=== PATIENT | male | born 1960 | race Caucasian/White ===

== ENCOUNTER 2018-09-22 13:52 | Emergency (ER) | payer MEDICAID ==
[2018-09-22] MEDS ORDERED: Aspirin 325 MG Tab.EC PO ONE (16:22)
--- NOTE | 2018-09-22 16:29 | EDM.PDOC ---
ED HPI GENERAL MEDICAL PROBLEM - General Chief Complaint: Cardiovascular Problem Stated Complaint: MEDICAL VIA [facility] Time Seen by Provider: 09/22/18 14:01 Source of Information: Reports: Patient History Limitations: Reports: No Limitations - History of Present Illness INITIAL COMMENTS - FREE TEXT/NARRATIVE: Patient collapsed at local store. No chest pain, seizure or other acute injury. Has muscle spasm left thigh. Onset: Today Onset Time: 14:00 Location: Reports: Lower Extremity, Right (s) Quality: Reports: Sharp Severity: Moderate Improves with: Reports: None, Movement Worsens with: Reports: Movement Context: Reports: Activity Associated Symptoms: Reports: No Other Symptoms - Related Data Allergies Allergy/AdvReac Type Severity Reaction Status Date / Time No Known Allergies Allergy Verified 09/22/18 14:07 Home Meds: Home Meds Aspirin 325 mg PO DAILY 09/22/18 [History] Chlorthalidone 25 mg PO DAILY 09/22/18 [History] Lactulose [Constulose] 30 ml PO DAILY 09/22/18 [History] Lisinopril 20 mg PO BID 09/22/18 [History] Melatonin 10 mg PO BEDTIME 09/22/18 [History] Past Medical History Cardiovascular History: Reports: Hypertension Neurological History: Reports: CVA Social & Family History - Tobacco Use Smoking Status *Q: Never Smoker - Caffeine Use Caffeine Use: Reports: Soda - Recreational Drug Use Recreational Drug Use: No ED ROS GENERAL - Review of Systems Review Of Systems: See Below Constitutional: Reports: No Symptoms HEENT: Reports: No Symptoms Respiratory: Reports: No Symptoms Cardiovascular: Reports: No Symptoms Endocrine: Reports: No Symptoms GI/Abdominal: Reports: No Symptoms : Reports: No Symptoms Musculoskeletal: Reports: Muscle Pain Skin: Reports: No Symptoms Neurological: Reports: No Symptoms Psychiatric: Reports: No Symptoms Hematologic/Lymphatic: Reports: No Symptoms Immunologic: Reports: No Symptoms ED EXAM, GENERAL - Physical Exam Exam: See Below Exam Limited By: No Limitations General Appearance: Alert Ears: Normal External Exam, Normal TMs Nose: Normal Inspection Throat/Mouth: Normal Inspection Head: Atraumatic Neck: Normal Inspection Respiratory/Chest: No Respiratory Distress Cardiovascular: Normal Peripheral Pulses, Irregularly Irregular GI/Abdominal: Non-Tender (Male) Exam: Deferred Rectal (Males) Exam: Deferred Back Exam: Normal Inspection Extremities: Leg Pain (spasm and tender L medical thigh. No bony tenderness), Limited Range of Motion Course - Vital Signs Last Recorded V/S: Last Vital Signs Temp 35.7 C 09/22/18 13:54 Pulse 82 09/22/18 16:02 Resp 13 09/22/18 16:02 BP 150/76 H 09/22/18 16:02 Pulse Ox 96 09/22/18 16:02 - Orders/Labs/Meds Labs: Laboratory Tests 09/22/18 09/22/18 09/22/18 Range/Units 14:20 14:20 14:20 WBC 13.0 H (4.5-11.0) K/uL RBC 3.97 L (4.30-5.90) M/uL Hgb 13.0 (12.0-15.0) g/dL Hct 38.5 L (40.0-54.0) % MCV 97 (80-98) fL MCH 33 H (27-31) pg MCHC 34 (32-36) % Plt Count 212 (150-400) K/uL Neut % (Auto) 76 H (36-66) % Lymph % (Auto) 18 L (24-44) % [place] % (Auto) 4 (2-6) % Eos % (Auto) 2 (2-4) % Baso % (Auto) 0 (0-1) % Sodium 143 (140-148) mmol/L Potassium 3.2 L (3.6-5.2) mmol/L Chloride 104 (100-108) mmol/L Carbon Dioxide 31 (21-32) mmol/L Anion Gap 11.2 (5.0-14.0) mmol/L BUN 23 H (7-18) mg/dL Creatinine 1.4 H (0.8-1.3) mg/dL Est Cr Clr Drug Dosing 60.51 mL/min Estimated GFR (MDRD) 52 L (>60) Glucose 174 H (74-106) mg/dL Calcium 8.7 (8.5-10.1) mg/dL Total Bilirubin 0.7 (0.2-1.0) mg/dL AST 25 (15-37) U/L ALT 33 (12-78) U/L Alkaline Phosphatase 87 (46-116) U/L Troponin I < 0.017 (0.000-0.056) ng/mL Total Protein 6.7 (6.4-8.2) g/dL Albumin 3.4 (3.4-5.0) g/dL Globulin 3.3 (2.3-3.5) g/dL Albumin/Globulin Ratio 1.0 L (1.2-2.2) Meds: Medications Discontinued Medications Generic Name Dose Route Start Last Admin Trade Name Freq PRN Reason Stop Dose Admin Aspirin 325 mg 09/22/18 16:22 09/22/18 16:28 Ecotrin PO 09/22/18 16:23 325 mg ONETIME ONE Administration Departure - Departure Time of Disposition: 16:30 Disposition: Home, Self-Care 01 Condition: Good (intermittent atrial fibrillation) Clinical Impression: Atrial dysrhythmia Instructions: Atrial Fibrillation, [id number] Forms: ED Department Discharge
--- NOTE | 2018-09-22 19:05 | CRLCR ---
PELVIS AND LEFT FEMUR INDICATION: Left-sided pain after fall. COMPARISON: None. FINDINGS/IMPRESSION: Acute nondisplaced intertrochanteric fracture of the left hip. No other fracture identified in the bony pelvis or left femur. Mild bilateral hip DJD changes. Dictated by Tacho Almonte MD @ 09/22/2018 7:03:20 PM Dictated by: Tacho Almonte MD @ 09/22/2018 19:04:12 (Electronically Signed)
--- NOTE | 2018-09-22 19:07 | CRLCR ---
PELVIS AND LEFT FEMUR INDICATION: Left-sided pain after fall. COMPARISON: None. FINDINGS/IMPRESSION: Acute nondisplaced intertrochanteric fracture of the left hip. No other fracture identified in the bony pelvis or left femur. Mild bilateral hip DJD changes. Dictated by Tacho Almonte MD @ 09/22/2018 7:03:20 PM Dictated by: Tacho Almonte MD @ 09/22/2018 19:04:35 (Electronically Signed)
== END 2018-09-22 20:20 ==
LOC: JP.ED 13:52
DX: S72.142A Displaced intertrochanteric fracture of left femur, initial encounter for closed fracture (principal); I49.9 Cardiac arrhythmia, unspecified; I10 Essential (primary) hypertension; Z79.82 Long term (current) use of aspirin; Z79.899 Other long term (current) drug therapy; Z86.73 Personal history of transient ischemic attack (TIA), and cerebral infarction without residual deficits; X58.XXXA Exposure to other specified factors, initial encounter
CPT/HCPCS: 36415; 72170; 73552; 80053; 84484; 85025; 99283; A9270; 93010

== ENCOUNTER 2025-01-22 13:25 | Inpatient (IN) | payer MEDICAID, MEDICARE ==
[2025-01-22 15:26] LABS: PLATELET COUNT,PLT 244.0 K/uL (130-375); RED BLOOD CELL COUNT 4.12 M/uL (4.14-5.76); WHITE BLOOD CELL COUNT,WBC 17.6 K/uL (3.2-11.0)
[2025-01-22 15:51] LABS: BLOOD UREA NITROGEN,BUN 22.0 mg/dL (7-18); CARBON DIOXIDE,CO2 24.0 mmol/L (21-32); CHLORIDE,CL 97.0 mmol/L (100-108); CREATININE 1.0 mg/dL (0.8-1.3); EST CRCL DRUG DOSING (CG) 75.03 mL/min; ESTIMATED GFR 83.0 mL/min (>60); GLUCOSE RANDOM 141.0 mg/dL (74-106); POTASSIUM,K 3.7 mmol/L (3.6-5.2); SODIUM,NA 134.0 mmol/L (140-148); TROPONIN I HIGH SENSITIVITY 6.4 pg/mL (<=60.3)
[2025-01-22] MEDS: Ketorolac 30 MG/ML SDV IVPUSH ONE (15:58)
[2025-01-22] MEDS: Sodium Chloride 0.9% 10 ML Syringe FLUSH ONE (16:06)
[2025-01-22] MEDS: Iopamidol 612 MG/ML 100 ML Bottle IV SCH (16:06)
[2025-01-22] MEDS ORDERED: Magnesium Hydroxide 400 MG/5 ML Susp 30 ML Cup PO PRN (20:01)
[2025-01-22] MEDS ORDERED: Sennosides/Docusate Sodium 50-8.6 MG Tab PO PRN (20:01)
[2025-01-22] MEDS ORDERED: Ondansetron 4 MG/2 ML SDV IV PRN (20:01)
[2025-01-22] MEDS ORDERED: Ondansetron 4 MG Tab.DIS PO PRN (20:01)
[2025-01-22] MEDS ORDERED: Naloxone 0.4 MG/ML SDV IVPUSH PRN (20:01)
[2025-01-23 06:03] LABS: PLATELET COUNT,PLT 258.0 K/uL (130-375); RED BLOOD CELL COUNT 3.8 M/uL (4.14-5.76); WHITE BLOOD CELL COUNT,WBC 15.1 K/uL (3.2-11.0)
[2025-01-23 06:14] LABS: INR 1.1
[2025-01-23 06:20] LABS: A/G RATIO 1.0 (1.2-2.2); ALANINE AMINOTRANSFERASE,ALT 36 U/L (12-78); ASPARTATE AMNIOTRANSFERASE,AST 32 U/L (15-37); BILIRUBIN TOTAL 0.6 mg/dL (0.2-1.0); BLOOD UREA NITROGEN,BUN 28 mg/dL (7-18); CARBON DIOXIDE,CO2 24 mmol/L (21-32); CHLORIDE,CL 97 mmol/L (100-108); CREATININE 1.1 mg/dL (0.8-1.3); EST CRCL DRUG DOSING (CG) 68.21 mL/min; ESTIMATED GFR 74 mL/min (>60); GLUCOSE RANDOM 152 mg/dL (74-106); POTASSIUM,K 3.6 mmol/L (3.6-5.2); PROTEIN TOTAL,TP 6.7 g/dL (6.4-8.2); SODIUM,NA 134 mmol/L (140-148)
[2025-01-23] MEDS ORDERED: Sodium Chloride 0.9% 10 ML Syringe IV PRN (09:19)
[2025-01-23] MEDS: Iopamidol 612 MG/ML 100 ML Bottle IV SCH (11:48)
== END 2025-01-24 13:09 | disposition home or self-care (01) | DRG 184 ==
LOC: JP.ED 13:25 → JP.MS 17:50
PROVIDERS: ADMIT Internal Medicine; ATTEND Internal Medicine
DX: S22.42XA Multiple fractures of ribs, left side, initial encounter for closed fracture (principal); C78.01 Secondary malignant neoplasm of right lung; S27.0XXA Traumatic pneumothorax, initial encounter; C78.02 Secondary malignant neoplasm of left lung; R55 Syncope and collapse; H54.7 Unspecified visual loss; E78.00 Pure hypercholesterolemia, unspecified; I10 Essential (primary) hypertension; E11.9 Type 2 diabetes mellitus without complications; M19.90 Unspecified osteoarthritis, unspecified site; W01.198A Fall on same level from slipping, tripping and stumbling with subsequent striking against other object, initial encounter; Z86.73 Personal history of transient ischemic attack (TIA), and cerebral infarction without residual deficits; Z79.82 Long term (current) use of aspirin; Z79.899 Other long term (current) drug therapy; Z79.84 Long term (current) use of oral hypoglycemic drugs; Z98.890 Other specified postprocedural states
CPT/HCPCS: 36415; 70450 ×2; 71260 ×2; 72125 ×2; 76377; 80048; 84484; 85027; 93005; 96374; 99285; A9270; Q9967; 71045; 71045-26; 74177; 74177-26; 80053; 85610; 93010; 93306; 97116-GP; 97161-GP; 97165-GO; 99223; 99232; 99238; J1885